=== PATIENT | male | born 1970 | race Caucasian/White ===

== ENCOUNTER 2022-12-13 00:30 | Emergency (ER) | payer SELFPAY | END 2022-12-13 01:01 | disposition home or self-care (01) | LOC: ERS 00:30 | DX: H60.91 Unspecified otitis externa, right ear (principal); H73.93 Unspecified disorder of tympanic membrane, bilateral; F17.210 Nicotine dependence, cigarettes, uncomplicated | CPT/HCPCS: 99282 ==